=== PATIENT | female | born 1940 | race Caucasian/White ===

== ENCOUNTER 2022-02-22 17:09 | Inpatient (IN) | payer MEDICARE ==
[2022-02-22 17:41] LABS: #Eosinphils 0.1 thou/uL (0.0-0.7); #Monocytes 0.6 thou/uL (0.11-0.59); #Neutrophils 7.4 thou/uL (1.40-6.50); %Basophils 0.4 % (0.0-1.0); %Eosinophils 1.5 % (0.0-10.0); %Lymphocytes 19.4 % (21.0-51.0); %Monocytes 5.5 % (0.0-10.0); %Neutrophils 73.3 % (42.0-75.0); Hemoglobin 13.4 g/dL (12.0-16.0); Mean Corpuscular HGB CONC 34.6 g/dL (32.0-36.0); Mean Corpuscular Hemoglobin 30.4 pg (27.0-31.0); Mean Platelet Volume 7.8 fL (7.4-10.4); Platelet Count 206 thou/uL (130-400); RBC Distribution Width 13.2 % (11.5-14.5); Red Blood Cell (RBC) Count 4.39 mill/uL (4.20-5.40)
[2022-02-22 17:58] LABS: ALT (SGPT) 17 U/L (8-55); AST (SGOT) 19 U/L (5-34); Alkaline Phosphatase 120 U/L (40-110); Anion Gap 14 mmol/L (10-20); BUN (Urea Nitrogen) 14 mg/dL (9.8-20.1); Bilirubin, Total 0.7 mg/dL (0.2-1.2); Calc. Creatinine Clearance 0 mL/min (70-130); Carbon Dioxide 22 mmol/L (23-31); Chloride 106 mmol/L (98-107); Estimated GFR 70; Globulin 3.2 g/dL (2.4-3.5); Glucose 125 mg/dL (83-110); Potassium 4.3 mmol/L (3.5-5.1); Protein, Total 7.2 g/dL (5.8-8.1); Sodium 138 mmol/L (136-145)
[2022-02-22 19:08] LABS: Bilirubin Negative (Negative); Blood, Urine 1+ (Negative); Glucose, Urine (Dipstick) Normal (Negative); Ketone, Urine 20 mg/dL (Negative); Leukocyte 250 Leu/uL (Negative); Nitrite 2+ (Negative); Protein, Urine (Dipstick) Negative (Neg-Trace); RBC/HPF 0-3 HPF (0-3); Specific Gravity, Urine 1.023 (1.002-1.036); Urobilinogen Normal mg/dL (Less than 2); WBC/HPF 21-50 HPF (0-3); pH, Urine 5.5 (5.0-9.0)
[2022-02-22 19:28] LABS: Bacteria/HPF 1+ HPF (None Seen); Clarity Cloudy (Clear)
[2022-02-22] MEDS ORDERED: Aspirin Chewable 81 MG TAB ONE (19:56)
[2022-02-22 20:50] LABS: Troponin I 0.027 ng/mL (< 0.028)
[2022-02-22] MEDS ORDERED: hydrALAZINE 20 MG/ML VIAL SLOW IVP PRN (21:46)
[2022-02-23] MEDS: Acetaminophen 325 MG TAB PO PRN (02:47)
[2022-02-23] MEDS: Melatonin 3 MG TAB PO PRN ×2 (02:47→20:43)
[2022-02-23] MEDS ORDERED: traZODone HCl 50 MG TAB PO SCH (04:30)
[2022-02-23 05:32] LABS: #Eosinphils 0.1 thou/uL (0.0-0.7); #Lymphocytes 1.4 thou/uL (1.20-3.40); #Monocytes 0.4 thou/uL (0.11-0.59); #Neutrophils 4.3 thou/uL (1.40-6.50); %Basophils 0.6 % (0.0-1.0); %Eosinophils 2.1 % (0.0-10.0); %Lymphocytes 21.8 % (21.0-51.0); %Monocytes 6.2 % (0.0-10.0); %Neutrophils 69.3 % (42.0-75.0); Hemoglobin 11.4 g/dL (12.0-16.0); Mean Corpuscular HGB CONC 33.3 g/dL (32.0-36.0); Mean Corpuscular Hemoglobin 29.3 pg (27.0-31.0); Mean Platelet Volume 7.6 fL (7.4-10.4); Platelet Count 177 thou/uL (130-400); RBC Distribution Width 13.1 % (11.5-14.5); Red Blood Cell (RBC) Count 3.89 mill/uL (4.20-5.40); White Blood Cell (WBC) Count 6.2 thou/uL (4.8-10.8)
[2022-02-23 06:21] LABS: Cardiac Risk 3.6 (Less than 4.5)
[2022-02-23 06:22] LABS: Hemoglobin A1c 5.9 % (4.0-6.0)
[2022-02-23 06:23] LABS: Troponin I 0.043 ng/mL (< 0.028)
[2022-02-23] MEDS ORDERED: diphenhydrAMINE 50 MG/ML VIAL IM SCH (06:30)
[2022-02-23] MEDS: Bupropion 150 MG XL TAB PO SCH (08:48)
[2022-02-23] MEDS: Rosuvastatin 20 MG TAB PO SCH (08:48)
[2022-02-23] MEDS: Donepezil HCl 10 MG TAB PO SCH (08:48)
[2022-02-23] MEDS: Enoxaparin Sodium 40 MG/0.4 ML SYRINGE SC SCH ×2 (08:49→09:19)
[2022-02-23] MEDS: Icosapent Ethyl 1 GM CAPSULE PO SCH (08:49)
[2022-02-23] MEDS: Alogliptin 25 MG TAB PO SCH (08:49)
[2022-02-23] MEDS: Aspirin Chewable 81 MG TAB PO SCH ×2 (08:49→17:03)
[2022-02-23] MEDS: FLU VACC QS2022-23(65YR UP)/PF 240 MCG/0.7 ML SYRINGE IM ONE (08:50)
[2022-02-23] MEDS ORDERED: Escitalopram Oxalate 20 mg Tablet PO SCH (09:00)
[2022-02-23] MEDS ORDERED: Aspirin 81 mg Enteric Coated Tablet PO SCH (09:00)
[2022-02-23] MEDS ORDERED: diphenhydrAMINE 50 MG/ML VIAL IVP PRN (10:24)
[2022-02-23] MEDS: Lactated Ringer's 500 ML IV SCH (11:30)
[2022-02-23] MEDS ORDERED: Cephalexin 250 MG CAP PO SCH (12:00)
[2022-02-23] MEDS: cefTRIAXone\\ROCEPHIN 1 GM in Sodium Chloride 0.9% 100 ML IVPB SCH (15:18)
[2022-02-23] MEDS ORDERED: Aspirin Chewable 81 MG TAB ONE (16:54)
[2022-02-23] MEDS: Niacin 500 MG TAB PO SCH (20:43)
[2022-02-24] MEDS: Alogliptin 25 MG TAB PO SCH (08:34)
[2022-02-24] MEDS: Bupropion 150 MG XL TAB PO SCH (09:35)
[2022-02-24] MEDS: Enoxaparin Sodium 40 MG/0.4 ML SYRINGE SC SCH (09:39)
[2022-02-24] MEDS: Donepezil HCl 10 MG TAB PO SCH (09:39)
[2022-02-24] MEDS: Icosapent Ethyl 1 GM CAPSULE PO SCH (09:40)
[2022-02-24] MEDS: Rosuvastatin 20 MG TAB PO SCH (09:42)
[2022-02-24] MEDS: cefTRIAXone\\ROCEPHIN 1 GM in Sodium Chloride 0.9% 100 ML IVPB SCH (14:45)
[2022-02-24 15:22] LABS: Syphilis Antibody Nonreactive (Nonreactive); Syphilis Antibody Index 0.06 S/CO (<1.00 Non-Reactive)
[2022-02-24] MEDS: Lactated Ringer's 500 ML IV SCH ×3 (15:46→18:46)
[2022-02-24] MEDS: Niacin 500 MG TAB PO SCH (20:56)
[2022-02-25] MEDS: Lactated Ringer's 500 ML IV SCH ×3 (04:15→23:28)
[2022-02-25 08:58] LABS: #Eosinphils 0.2 thou/uL (0.0-0.7); #Lymphocytes 1.7 thou/uL (1.20-3.40); #Monocytes 0.3 thou/uL (0.11-0.59); #Neutrophils 2.9 thou/uL (1.40-6.50); %Basophils 0.7 % (0.0-1.0); %Eosinophils 4.4 % (0.0-10.0); %Lymphocytes 32.4 % (21.0-51.0); %Monocytes 6.6 % (0.0-10.0); %Neutrophils 55.9 % (42.0-75.0); Hemoglobin 12.1 g/dL (12.0-16.0); Mean Corpuscular HGB CONC 33.1 g/dL (32.0-36.0); Mean Corpuscular Hemoglobin 29.2 pg (27.0-31.0); Mean Corpuscular Volume 88.1 fl (78.0-98.0); Mean Platelet Volume 7.3 fL (7.4-10.4); Platelet Count 201 thou/uL (130-400); RBC Distribution Width 13.3 % (11.5-14.5); Red Blood Cell (RBC) Count 4.16 mill/uL (4.20-5.40); White Blood Cell (WBC) Count 5.1 thou/uL (4.8-10.8)
[2022-02-25] MEDS: Alogliptin 25 MG TAB PO SCH (09:18)
[2022-02-25] MEDS: Bupropion 150 MG XL TAB PO SCH (09:19)
[2022-02-25] MEDS: Aspirin Chewable 81 MG TAB PO SCH (09:19)
[2022-02-25] MEDS: Enoxaparin Sodium 40 MG/0.4 ML SYRINGE SC SCH (09:20)
[2022-02-25] MEDS: Icosapent Ethyl 1 GM CAPSULE PO SCH (09:20)
[2022-02-25] MEDS: Donepezil HCl 10 MG TAB PO SCH (09:20)
[2022-02-25] MEDS: Rosuvastatin 20 MG TAB PO SCH (09:21)
[2022-02-25 09:32] LABS: Anion Gap 12 mmol/L (10-20); BUN (Urea Nitrogen) 11 mg/dL (9.8-20.1); Calc. Creatinine Clearance 66 mL/min (70-130); Carbon Dioxide 23 mmol/L (23-31); Chloride 111 mmol/L (98-107); Potassium 3.5 mmol/L (3.5-5.1); Sodium 142 mmol/L (136-145)
[2022-02-25 09:33] LABS: ALT (SGPT) 16 U/L (8-55); AST (SGOT) 17 U/L (5-34); Albumin 3.5 g/dL (3.4-4.8); Alkaline Phosphatase 93 U/L (40-110); Bilirubin, Total 0.4 mg/dL (0.2-1.2); Calcium 9.2 mg/dL (7.8-10.44); Estimated GFR 82; Globulin 2.7 g/dL (2.4-3.5); Glucose 130 mg/dL (83-110); Protein, Total 6.2 g/dL (5.8-8.1)
[2022-02-25] MEDS: cefTRIAXone\\ROCEPHIN 1 GM in Sodium Chloride 0.9% 100 ML IVPB SCH (14:30)
[2022-02-25] MEDS ORDERED: cefTRIAXone\\ROCEPHIN 1 GM VIAL IM SCH (17:30)
[2022-02-25] MEDS: Niacin 500 MG TAB PO SCH (20:35)
[2022-02-26] MEDS: Aspirin Chewable 81 MG TAB PO SCH (08:21)
[2022-02-26] MEDS: Donepezil HCl 10 MG TAB PO SCH (08:22)
[2022-02-26] MEDS: Rosuvastatin 20 MG TAB PO SCH (08:22)
[2022-02-26] MEDS: Bupropion 150 MG XL TAB PO SCH (08:22)
[2022-02-26] MEDS: Alogliptin 25 MG TAB PO SCH (08:22)
[2022-02-26] MEDS: Icosapent Ethyl 1 GM CAPSULE PO SCH (08:34)
[2022-02-26] MEDS: Enoxaparin Sodium 40 MG/0.4 ML SYRINGE SC SCH (10:48)
[2022-02-26] MEDS: Melatonin 3 MG TAB PO PRN (20:21)
[2022-02-26] MEDS: Niacin 500 MG TAB PO SCH (20:21)
[2022-02-26] MEDS: Senokot S 8.6-50 MG TAB PO SCH (20:21)
[2022-02-27] MEDS ORDERED: Lidocaine 5% Patch TD PRN (04:18)
[2022-02-27] MEDS: Alogliptin 25 MG TAB PO SCH (09:36)
[2022-02-27] MEDS: Aspirin Chewable 81 MG TAB PO SCH (09:36)
[2022-02-27] MEDS: Rosuvastatin 20 MG TAB PO SCH (09:37)
[2022-02-27] MEDS: Icosapent Ethyl 1 GM CAPSULE PO SCH (09:37)
[2022-02-27] MEDS: Donepezil HCl 10 MG TAB PO SCH (09:37)
[2022-02-27] MEDS: Bupropion 150 MG XL TAB PO SCH (09:37)
[2022-02-27] MEDS: Enoxaparin Sodium 40 MG/0.4 ML SYRINGE SC SCH (09:37)
[2022-02-27] MEDS: Senokot S 8.6-50 MG TAB PO SCH ×2 (09:38→20:35)
[2022-02-27] MEDS: Niacin 500 MG TAB PO SCH ×2 (20:35→20:43)
[2022-02-27] MEDS: Melatonin 3 MG TAB PO PRN (20:35)
[2022-02-28] MEDS: Alogliptin 25 MG TAB PO SCH (08:26)
[2022-02-28] MEDS: Aspirin Chewable 81 MG TAB PO SCH (08:26)
[2022-02-28] MEDS: Icosapent Ethyl 1 GM CAPSULE PO SCH (08:27)
[2022-02-28] MEDS: Donepezil HCl 10 MG TAB PO SCH (08:27)
[2022-02-28] MEDS: Rosuvastatin 20 MG TAB PO SCH (08:27)
[2022-02-28] MEDS: Bupropion 150 MG XL TAB PO SCH (08:27)
[2022-02-28] MEDS: Senokot S 8.6-50 MG TAB PO SCH ×2 (08:27→21:54)
[2022-02-28] MEDS: Enoxaparin Sodium 40 MG/0.4 ML SYRINGE SC SCH (08:27)
[2022-02-28] MEDS: Acetaminophen 325 MG TAB PO PRN ×2 (11:53→21:53)
[2022-02-28] MEDS: Melatonin 3 MG TAB PO SCH (21:54)
[2022-02-28] MEDS: Niacin 500 MG TAB PO SCH (21:54)
[2022-03-01] MEDS: Acetaminophen 325 MG TAB PO PRN ×3 (09:07→20:16)
[2022-03-01] MEDS: Icosapent Ethyl 1 GM CAPSULE PO SCH (09:09)
[2022-03-01] MEDS: Alogliptin 25 MG TAB PO SCH (09:09)
[2022-03-01] MEDS: Enoxaparin Sodium 40 MG/0.4 ML SYRINGE SC SCH (09:09)
[2022-03-01] MEDS: Bupropion 150 MG XL TAB PO SCH (09:09)
[2022-03-01] MEDS: Rosuvastatin 20 MG TAB PO SCH (09:09)
[2022-03-01] MEDS: Senokot S 8.6-50 MG TAB PO SCH ×2 (09:09→20:17)
[2022-03-01] MEDS: Aspirin Chewable 81 MG TAB PO SCH (09:09)
[2022-03-01] MEDS: Donepezil HCl 10 MG TAB PO SCH (09:09)
[2022-03-01] MEDS: Niacin 500 MG TAB PO SCH (20:16)
[2022-03-01] MEDS: Melatonin 3 MG TAB PO SCH (20:16)
[2022-03-02] MEDS: Icosapent Ethyl 1 GM CAPSULE PO SCH ×2 (09:34→09:43)
[2022-03-02] MEDS: Aspirin Chewable 81 MG TAB PO SCH (09:34)
[2022-03-02] MEDS: Rosuvastatin 20 MG TAB PO SCH (09:34)
[2022-03-02] MEDS: Donepezil HCl 10 MG TAB PO SCH (09:34)
[2022-03-02] MEDS: Alogliptin 25 MG TAB PO SCH (09:34)
[2022-03-02] MEDS: Enoxaparin Sodium 40 MG/0.4 ML SYRINGE SC SCH (09:34)
[2022-03-02] MEDS: Senokot S 8.6-50 MG TAB PO SCH ×2 (09:34→20:00)
[2022-03-02] MEDS: Bupropion 150 MG XL TAB PO SCH (09:34)
[2022-03-02] MEDS: Melatonin 3 MG TAB PO SCH (19:59)
[2022-03-02] MEDS: Niacin 500 MG TAB PO SCH (19:59)
[2022-03-02] MEDS: Acetaminophen 325 MG TAB PO PRN (20:00)
[2022-03-03] MEDS: Rosuvastatin 20 MG TAB PO SCH (09:05)
[2022-03-03] MEDS: Icosapent Ethyl 1 GM CAPSULE PO SCH ×2 (09:05→09:12)
[2022-03-03] MEDS: Bupropion 150 MG XL TAB PO SCH (09:05)
[2022-03-03] MEDS: Aspirin Chewable 81 MG TAB PO SCH (09:05)
[2022-03-03] MEDS: Donepezil HCl 10 MG TAB PO SCH (09:05)
[2022-03-03] MEDS: Alogliptin 25 MG TAB PO SCH (09:05)
[2022-03-03] MEDS: Enoxaparin Sodium 40 MG/0.4 ML SYRINGE SC SCH (09:05)
[2022-03-03] MEDS: Senokot S 8.6-50 MG TAB PO SCH ×2 (09:06→20:59)
[2022-03-03] MEDS: Acetaminophen 325 MG TAB PO PRN (16:49)
[2022-03-03] MEDS: Melatonin 3 MG TAB PO SCH (20:59)
[2022-03-03] MEDS: Niacin 500 MG TAB PO SCH (20:59)
[2022-03-04] MEDS: Donepezil HCl 10 MG TAB PO SCH (08:31)
[2022-03-04] MEDS: Enoxaparin Sodium 40 MG/0.4 ML SYRINGE SC SCH (08:31)
[2022-03-04] MEDS: Bupropion 150 MG XL TAB PO SCH (08:32)
[2022-03-04] MEDS: Rosuvastatin 20 MG TAB PO SCH (08:32)
[2022-03-04] MEDS: Alogliptin 25 MG TAB PO SCH (08:32)
[2022-03-04] MEDS: Acetaminophen 325 MG TAB PO PRN (08:32)
[2022-03-04] MEDS: Aspirin Chewable 81 MG TAB PO SCH (08:32)
[2022-03-04] MEDS: Icosapent Ethyl 1 GM CAPSULE PO SCH ×2 (08:33→10:43)
[2022-03-04] MEDS: Senokot S 8.6-50 MG TAB PO SCH ×2 (10:43→21:22)
[2022-03-04 15:55] VITALS: BMI 24.6
[2022-03-04] MEDS: FLU VACC QS2022-23(65YR UP)/PF 240 MCG/0.7 ML SYRINGE IM ONE (17:45)
[2022-03-04] MEDS: Melatonin 3 MG TAB PO SCH (21:22)
[2022-03-04] MEDS: Niacin 500 MG TAB PO SCH (21:22)
[2022-03-04 21:35] VITALS: BP 131/71; TEMP 97.6
== END 2022-03-04 22:15 | DRG 64 ==
LOC: ERS 17:09 → NEURO 19:39 → OBSVTOIN 02-23 14:17
PROVIDERS: ADMIT Family Medicine; ATTEND Family Medicine
DX: I63.89 Other cerebral infarction (principal); I50.21 Acute systolic (congestive) heart failure; G81.94 Hemiplegia, unspecified affecting left nondominant side; N39.0 Urinary tract infection, site not specified; G93.49 Other encephalopathy; Z66 Do not resuscitate; Z51.5 Encounter for palliative care; Z20.822 Contact with and (suspected) exposure to COVID-19; I25.5 Ischemic cardiomyopathy; F01.50 Vascular dementia, unspecified severity, without behavioral disturbance, psychotic disturbance, mood disturbance, and anxiety; E11.9 Type 2 diabetes mellitus without complications; F32.A Depression, unspecified; R29.810 Facial weakness; R94.31 Abnormal electrocardiogram [ECG] [EKG]; G30.9 Alzheimer's disease, unspecified; F02.80 Dementia in other diseases classified elsewhere, unspecified severity, without behavioral disturbance, psychotic disturbance, mood disturbance, and anxiety; R29.709 NIHSS score 9; K80.80 Other cholelithiasis without obstruction; B96.20 Unspecified Escherichia coli [E. coli] as the cause of diseases classified elsewhere; I11.0 Hypertensive heart disease with heart failure; R47.81 Slurred speech; E78.5 Hyperlipidemia, unspecified; G93.89 Other specified disorders of brain; Z79.82 Long term (current) use of aspirin; Z79.899 Other long term (current) drug therapy
CPT/HCPCS: 36415; 36416; 51701; 70450; 70551; 80053; 80061; 81003; 81015; 82553; 82607; 83036; 83605; 84443; 84484; 85025; 86780; 87077; 87086; 87186; 87205; 87811; 90471; 90662; 90732; 93005; 93306; 93880; 95816; 95819; 95957; 96372; G0008; G0009; G0378; J0696; J1200; J1650; J3490; J7120; U0003; U0005